=== PATIENT | male | born 1970 | race Caucasian/White ===

== ENCOUNTER → 2017-01-19 | Outpatient (CLI) | payer BC ==
[~2017-01-19] MED LIST: HYDC25 PO; POTA10CA28 PO
[2017-01-19 17:42] LABS: HEMATOCRIT 45.2 % (42-52)
== END | disposition home or self-care (01) ==
LOC: C.LAB1850 16:23
PROVIDERS: ATTEND Internal Medicine
DX: E83.119 Hemochromatosis, unspecified (principal)

== ENCOUNTER 2017-10-27 02:16 | Emergency (ER) | payer BC ==
[~2017-10-27] VITALS: Ht 185.4 cm; Wt 99.1 kg
[2017-10-27 02:19] VITALS: Ht 185.4 cm; Wt 99.1 kg
[2017-10-27 02:24] VITALS: O2SAT 100
[2017-10-27] MEDS ORDERED: HydrALAZINE HCL 20 MG/ML VIAL IV. STA (02:38)
[2017-10-27 02:46] LABS: BASO % 0.4 %; BASO ABS # 0.04 K/uL (0-0.2); COMPLETE YES; EOS % 3.2 %; HEMATOCRIT 47.2 % (42-52); IG% 0.1 %; LYMPH % 29.4 %; LYMPH ABS # 2.77 K/uL (1.2-3.4); MEAN CELL VOLUME 93.5 fL (80-100); MEAN CORPUSCULAR HEMOGLOBIN 32.9 pg (25-34); MEAN CORPUSCULAR HGB CONC 35.2 g/dl (32-36); MEAN PLATELET VOLUME 10.8 fL (7.4-10.4); MONO % 7.7 %; NEUT % 59.2 %; PLATELET COUNT 189 K/uL (130-400); RED BLOOD COUNT 5.05 M/uL (4.7-6.1); WHITE BLOOD COUNT 9.41 K/uL (4.8-10.8)
--- NOTE | 2017-10-27 02:48 | EMERGENCY ROOM VISIT NOTE ---
History Report prepared by Shanaeibe: Christi García Under the Supervision of: Dr. Keenan Conti D.O. First contact with patient: 02:26 Chief Complaint: IRREGULAR HEARTBEAT Stated Complaint: HEART BEAT IRREGULAR History of Present Illness The patient is a 47 year old male who presents to the Emergency Room with complaints of intermittent palpitations starting several months ago. He mostly has these palpitations when he is lying down. He was trying to sleep today when he started having these palpitations again. The palpitations lasted for longer than usual today. He decided to come to the ED. He has some numbness in his left arm with the palpitations. He denies any dizziness, lightheadedness, nausea , vomiting, chest pain, or SOB. He had not had his blood pressure medications in 2-3 days. He notes he has been cutting back on caffeine to try and prevent the palpitations. He does chew tobacco. He denies any alcohol use. Source of History: patient Onset: several months ago Position: other (global) Quality: other (palpitations) Timing: intermittent Associated Symptoms: + numbness, No chest pain, No SOB, No nausea, No vomiting Note: Pt denies dizziness, lightheadedness. Review of Systems See HPI for pertinent positives and negatives. A total of ten systems were reviewed and were otherwise negative. Past Medical & Surgical Medical Problems: (1) Hypertension Family History Asthma Diabetes mellitus FH: cancer Social History Smoking Status: Never Smoker Marital Status: Occupation Status: employed Current/Historical Medications Scheduled Hydrochlorothiazide (Hctz *), 37.5 MG PO DAILY Potassium Chloride (Micro-K Ext Rel), 10 MEQ PO BID Allergies Coded Allergies: No Known Allergies (Unverified , 01/20/17) Physical Exam Vital Signs Date Time Temp Pulse Resp B/P (MAP) Pulse Ox O2 Delivery O2 Flow Rate FiO2 10/27/17 02:57 85 18 114/77 98 Room Air 10/27/17 02:49 81 18 161/118 98 Room Air 10/27/17 02:35 99 Room Air 10/27/17 02:30 88 10/27/17 02:24 85 20 183/110 100 Room Air 10/27/17 02:24 100 Room Air 10/27/17 02:19 36.6 85 20 177/100 99 Room Air Physical Exam GENERAL: Awake, alert, well-appearing, in no distress HENT: Normocephalic, atraumatic. Oropharynx unremarkable. EYES: Normal conjunctiva. Sclera non-icteric. NECK: Supple. No nuchal rigidity. FROM. No JVD. RESPIRATORY: Clear to auscultation. CARDIAC: Regular rate, normal rhythm. Extremities warm and well perfused. Pulses equal. ABDOMEN: Soft, non-distended. No tenderness to palpation. No rebound or guarding. No masses. RECTAL: Deferred. MUSCULOSKELETAL: Chest examination reveals no tenderness. The back is symmetrical on inspection without obvious abnormality. There is no CVA tenderness to palpation. No joint edema. LOWER EXTREMITIES: Calves are equal size bilaterally and non-tender. No edema. No discoloration. NEURO: Normal sensorium. No sensory or motor deficits noted. SKIN: No rash or jaundice noted. Medical Decision & Procedures ER Provider Diagnostic Interpretation: X-ray: Per my interpretation, radiologist review. Chest X-ray: Negative for acute process. Laboratory Results 10/27/17 02:38 Red Blood Count 5.05, Mean Corpuscular Volume 93.5, Mean Corpuscular Hemoglobin 32.9, Mean Corpuscular Hemoglobin Concent 35.2, Mean Platelet Volume 10.8, Neutrophils (%) (Auto) 59.2, Lymphocytes (%) (Auto) 29.4, Monocytes (%) (Auto) 7.7, Eosinophils (%) (Auto) 3.2, Basophils (%) (Auto) 0.4, Neutrophils # (Auto) 5.57, Lymphocytes # (Auto) 2.77, Monocytes # (Auto) 0.72, Eosinophils # (Auto) 0.30, Basophils # (Auto) 0.04 10/27/17 02:38 Test 10/27/17 02:38 10/27/17 02:43 White Blood Count 9.41 K/uL (4.8-10.8) Red Blood Count 5.05 M/uL (4.7-6.1) Hemoglobin 16.6 g/dL (14.0-18.0) Hematocrit 47.2 % (42-52) Mean Corpuscular Volume 93.5 fL (80-100) Mean Corpuscular Hemoglobin 32.9 pg (25-34) Mean Corpuscular Hemoglobin Concent 35.2 g/dl (32-36) Platelet Count 189 K/uL (130-400) Mean Platelet Volume 10.8 fL (7.4-10.4) Neutrophils (%) (Auto) 59.2 % Lymphocytes (%) (Auto) 29.4 % Monocytes (%) (Auto) 7.7 % Eosinophils (%) (Auto) 3.2 % Basophils (%) (Auto) 0.4 % Neutrophils # (Auto) 5.57 K/uL (1.4-6.5) Lymphocytes # (Auto) 2.77 K/uL (1.2-3.4) Monocytes # (Auto) 0.72 K/uL (0.11-0.59) Eosinophils # (Auto) 0.30 K/uL (0-0.5) Basophils # (Auto) 0.04 K/uL (0-0.2) RDW Standard Deviation 41.4 fL (36.4-46.3) RDW Coefficient of Variation 12.4 % (11.5-14.5) Immature Granulocyte % (Auto) 0.1 % Immature Granulocyte # (Auto) 0.01 K/uL (0.00-0.02) Anion Gap 5.0 mmol/L (3-11) Est Creatinine Clear Calc Drug Dose 104.7 ml/min Estimated GFR () 94.2 Estimated GFR (Non- 81.3 BUN/Creatinine Ratio 16.2 (10-20) Calcium Level 8.8 mg/dl (8.5-10.1) Total Bilirubin 0.3 mg/dl (0.2-1) Direct Bilirubin mg/dl (0-0.2) Aspartate Amino Transf (AST/SGOT) 17 U/L (15-37) Alanine Aminotransferase (ALT/SGPT) 26 U/L (12-78) Alkaline Phosphatase 121 U/L (45-117) Total Protein 7.8 gm/dl (6.4-8.2) Albumin 4.0 gm/dl (3.4-5.0) Chemistry Specimen Hemolysis Bedside Troponin I < 0.030 ng/ml (0-0.045) Laboratory results reviewed by me Medications Administered Medications (Trade) Dose Ordered Sig/Nicolasa Route Start Time Stop Time Status Last Admin Dose Admin Hydralazine HCl (HydrALAZINE INJ) 10 mg NOW STAT IV. 10/27/17 02:38 10/27/17 02:39 DC 10/27/17 02:48 10 MG ECG Indication: palpitations Rate (beats per minute): 85 Rhythm: normal sinus Findings: no acute ischemic change, other (normal intervals, normal axis) ED Course 0235: The patient was evaluated in room B6. A complete history and physical exam was performed. 0238: Hydralazine HCl 10 mg IV. 0330: I reevaluated the patient. Discussed results and discharge instructions: he verbalized understanding and agreement. The patient is ready for discharge. Medical Decision Differential diagnoses include but are not limited to; palpitations, anxiety, cardiac dysrhythmia, metabolic derangement, hypertensive crisis. Patient was given IV hydralazine blood pressures 140/70. Patient has had no cardiac dysrhythmia throughout emergency department evaluation. Repeat examination patient's resting in no distress. I've encouraged patient to follow up primary care physician for continued symptoms. Discussed all evaluation with the patient and patient's significant other at bedside. Medication Reconcilliation Current Medication List: was personally reviewed by me Blood Pressure Screening Patient's blood pressure: Elevated blood pressure Blood pressure disposition: Referred to PCP Impression Primary Impression: Palpitations Additional Impression: Hypertension Scribe Attestation The scribe's documentation has been prepared under my direction and personally reviewed by me in its entirety. I confirm that the note above accurately reflects all work, treatment, procedures, and medical decision making performed by me. Departure Information Dispostion Home / Self-Care Referrals Pablo Holbrook M.D. (PCP) Patient Instructions ED Palpitations, My [facility] Additional Instructions Follow-up primary care physician in one to 2 days, return for worsening symptoms Problem Qualifiers
[2017-10-27 03:24] LABS: ALKALINE PHOSPHATASE 121 U/L (45-117); ALT/SGPT 26 U/L (12-78); AST/SGOT 17 U/L (15-37); BLOOD UREA NITROGEN 17 mg/dl (7-18); BUN/CREATININE RATIO 16.2 (10-20); CALCIUM 8.8 mg/dl (8.5-10.1); CARBON DIOXIDE 28 mmol/L (21-32); CHLORIDE 104 mmol/L (98-107); CREATININE 1.08 mg/dl (0.60-1.40); GLUCOSE 118 mg/dl (70-99); POTASSIUM 3.4 mmol/L (3.5-5.1); SODIUM 137 mmol/L (136-145)
[2017-10-27 03:41] VITALS: BP 147/93; PULSE 81; TEMP 36.6; O2SAT 99
--- NOTE | 2017-10-27 06:36 | DIAGNOSTIC IMAGING REPORT ---
CHEST ONE VIEW PORTABLE CLINICAL HISTORY: Chest pain. COMPARISON STUDY: No previous studies for comparison. FINDINGS: Lung volumes are normal. No pneumothorax or pleural effusion is present. No consolidation to suggest pneumonia. Cardiomediastinal silhouette is normal. Patient is mildly rotated. IMPRESSION: No acute cardiopulmonary findings. Electronically signed by: Matt Lezama M.D. 10/27/2017 6:35 AM Dictated Date/Time: 10/27/2017 6:34 AM
== END 2017-10-27 03:42 | disposition home or self-care (01) ==
LOC: C.EDB 02:17
DX: R00.2 Palpitations (principal); I10 Essential (primary) hypertension

== ENCOUNTER → 2017-10-29 | Outpatient (CLI) | payer BC ==
[2017-10-29 18:11] LABS: FERRITIN 269.4 ng/ml (8.0-388.0); THYROID STIMULATING HORMONE 2.34 uIu/ml (0.300-4.500)
== END | disposition home or self-care (01) ==
LOC: C.LABPVFM 14:26
PROVIDERS: ATTEND Nurse Practitioner Family
DX: E83.119 Hemochromatosis, unspecified (principal); R00.2 Palpitations

== ENCOUNTER → 2018-03-11 | Outpatient (CLI) | payer BC ==
[2018-03-11 17:44] LABS: HEMATOCRIT 47.8 % (42-52); HEMOGLOBIN 17.3 g/dL (14.0-18.0); MEAN CELL VOLUME 93.7 fL (80-100); MEAN CORPUSCULAR HEMOGLOBIN 33.9 pg (25-34); MEAN CORPUSCULAR HGB CONC 36.2 g/dl (32-36); MEAN PLATELET VOLUME 11.1 fL (7.4-10.4); PLATELET COUNT 209 K/uL (130-400); RED CELL DISTRIBUTION WIDTH CV 11.9 % (11.5-14.5); RED CELL DISTRIBUTION WIDTH SD 40.6 fL (36.4-46.3); WHITE BLOOD COUNT 10.62 K/uL (4.8-10.8)
[2018-03-11 18:22] LABS: ALBUMIN 4.1 gm/dl (3.4-5.0); ALT/SGPT 29 U/L (12-78); AST/SGOT 19 U/L (15-37); BLOOD UREA NITROGEN 17 mg/dl (7-18); CALCIUM 9.2 mg/dl (8.5-10.1); CARBON DIOXIDE 30 mmol/L (21-32); CHOLESTEROL 143 mg/dl (0-200); GLUCOSE 91 mg/dl (70-99); POTASSIUM 4.2 mmol/L (3.5-5.1); SODIUM 136 mmol/L (136-145)
[2018-03-11 18:32] LABS: ALKALINE PHOSPHATASE 106 U/L (45-117); LDL CHOLESTEROL CALCULATED 43 mg/dl; TOTAL PROTEIN 7.8 gm/dl (6.4-8.2)
--- NOTE | 2018-03-21 20:59 | CODING QUERY NO DIAGNOSIS ---
TREATMENT RENDERED WITHOUT A DIAGNOSIS DATE OF SERVICE: 03/11/18 To promote full compliance with coding requirements relating to patient care, physician participation is requested in all cases of audit intern uncertainty. Please assist us with providing a diagnosis/symptom for the test(s) below: A diagnosis/symptom was not documented on your Order. A valid diagnosis/symptom is required to bill all insurances. Please remember that we are unable to code a diagnosis of rule out, probable, possible, questionable, or suspected. Tests that require a diagnosis: * COMP METABOLIC PROFILE DIAGNOSIS: * GLYCOHEMOGLOBIN A1C DIAGNOSIS: * LIPID PANEL DIAGNOSIS: * TSH DIAGNOSIS: * HA1C RESULT DIAGNOSIS: * CBC W/O DIFF DIAGNOSIS: Provider Signature: Date: Thank you Katy Andersen Health Information Management Once completed, please kindly fax back to [phone] For questions please call [phone]
== END | disposition home or self-care (01) ==
LOC: C.LABPVFM 16:22
PROVIDERS: ATTEND Family Medicine
DX: I10 Essential (primary) hypertension (principal); R73.09 Other abnormal glucose; R00.2 Palpitations; E83.119 Hemochromatosis, unspecified

== ENCOUNTER → 2018-07-09 | Outpatient (CLI) | payer BC ==
[2018-07-09 14:59] LABS: HEMATOCRIT 43.9 % (42-52); HEMOGLOBIN 15.8 g/dL (14.0-18.0)
== END | disposition home or self-care (01) ==
LOC: C.LAB 14:38
PROVIDERS: ATTEND Physician Assistant
DX: E83.119 Hemochromatosis, unspecified (principal)